=== PATIENT | male | born 1950 | race Caucasian/White ===

== ENCOUNTER 2019-09-28 07:26 | Outpatient (CLI) | payer BC ==
--- NOTE | 2019-09-28 10:46 | NM ---
HEPATOBILIARY SCAN: HISTORY:Right upper quadrant pain. No gallstones and ultrasound of 05/17/2019. RADIOPHARMACEUTICAL: 6 mCi Technetium 99m Mebrofenin injected intravenously FINDINGS: There is normal tracer extraction by the liver with normal excretion into the biliary tracts and smal l bowel loops and normal filling of the gallbladder. The calculated gallbladder ejection fraction following an oral fatty meal measures 97%. IMPRESSION:Normal exam.
== END 2019-09-28 07:27 | disposition home or self-care (01) ==
LOC: NM 07:26
PROVIDERS: ATTEND Physician Assistant Medical
DX: R10.11 Right upper quadrant pain (principal)
CPT/HCPCS: 78227; A9537

== ENCOUNTER 2020-05-08 08:04 | Outpatient (CLI) | payer BC ==
--- NOTE | 2020-05-09 09:25 | NM ---
Nuclear medicine I-123 thyroid scan and uptake: DATE: 05/09/2020 HISTORY: 70-year-old male with thyromegaly TECHNIQUE: 0.22 mCi I-123 administered P.O. 4 hour scintigraphic images obtained. 4 hour and 24 uptake studies performed. FINDINGS: 4 hour radioiodine uptake:8 % 24 hour radioiodine [id number] % Scintigraphic appearance:Homogeneous uptake in left and right lobes with no evidence of hot or cold n odules.. IMPRESSION: Normal
== END 2020-05-08 08:05 | disposition home or self-care (01) ==
LOC: NM 08:04
PROVIDERS: ATTEND Family Medicine
DX: E01.0 Iodine-deficiency related diffuse (endemic) goiter (principal)
CPT/HCPCS: 78014; A9516

== ENCOUNTER 2023-05-18 08:56 | Outpatient (CLI) | payer OTHER ==
[2023-05-18] MEDS ORDERED: Iopamidol 370 76% 100 ML VIAL ONE (09:53)
== END 2023-05-18 08:57 | disposition home or self-care (01) ==
LOC: BICCT 08:56
PROVIDERS: ATTEND Physician Assistant Medical
DX: R10.13 Epigastric pain (principal); R10.11 Right upper quadrant pain
CPT/HCPCS: 74160; Q9967

== ENCOUNTER 2025-05-08 11:49 | Outpatient (CLI) | payer OTHER ==
[2025-05-08 12:43] LABS: Estimated GFR - POC 70.0
[2025-05-08] MEDS ORDERED: Iopamidol 370 76% 100 ML VIAL ONE (13:13)
== END 2025-05-08 11:50 | disposition home or self-care (01) ==
LOC: CT 11:49
PROVIDERS: ATTEND Nurse Practitioner Family
DX: R31.1 Benign essential microscopic hematuria (principal)
CPT/HCPCS: 36415; 74178; 82565; Q9967

== ENCOUNTER 2025-07-10 08:23 | Outpatient (CLI) | payer OTHER ==
[2025-07-11 13:26] LABS: Estimated GFR - POC 63.0
== END 2025-07-10 08:24 | disposition home or self-care (01) ==
LOC: MRI 08:23
PROVIDERS: ATTEND Nurse Practitioner Family
DX: M54.50 Low back pain, unspecified (principal); M48.061 Spinal stenosis, lumbar region without neurogenic claudication; M48.07 Spinal stenosis, lumbosacral region
CPT/HCPCS: 36415; 72158; 82565